=== PATIENT | female | born 1990 | race Caucasian/White ===

== ENCOUNTER 2018-08-11 10:06 | Emergency (ER) | payer OTHER ==
--- NOTE | 2018-08-11 10:52 | ER Document Report ---
ED Medical Screen (RME) - General Chief Complaint: Abdominal Pain Stated Complaint: ABDOMINAL CRAMPING Time Seen by Provider: 08/11/18 10:46 Mode of Arrival: Ambulatory Information source: Patient Notes: 27-year-old female presented to ED for pelvic cramping vaginal slight spotting and patient states she woke up saturated with some type of body fluid but does not smell like urine. She said her medical history is bronchitis 1 live and eye surgery. She is alert oriented respirations regular and unlabored speaking in full sentences walks with a even steady gait. States her last men strual period was a couple months ago. I have greeted and performed a rapid initial assessment of this patient. A comprehensive ED assessment and evaluation of the patient, analysis of test results and completion of medical decision making process will be conducted by an additional ED providers. Dictation of this chart was performed using voice recognition software; therefore, there may be some unintended grammatical errors. TRAVEL OUTSIDE OF THE [place] IN LAST 30 DAYS: No - Related Data Allergies/Adverse Reactions: Penicillins Allergy (Verified 08/11/18 10:09) Physical Exam - Vital signs Vitals: Temp Pulse Resp BP Pulse Ox 97.2 F 70 16 117/60 99 08/11/18 10:12 08/11/18 10:12 08/11/18 10:12 08/11/18 10:12 08/11/18 10:12 Course - Vital Signs Vital signs: Temp Pulse Resp BP Pulse Ox 97.2 F 70 16 117/60 99 08/11/18 10:12 08/11/18 10:12 08/11/18 10:12 08/11/18 10:12 08/11/18 10:12
[2018-08-11 11:32] LABS: ABSOLUTE EOSINOPHILS # (AUTO) 0.1 10^3/uL (0.0-0.6); ABSOLUTE LYMPHOCYTES (AUTO) 1.5 10^3/uL (0.5-4.7); ABSOLUTE MONOCYTES (AUTO) 0.5 10^3/uL (0.1-1.4); BASOPHILS % (AUTO) 0.6 % (0-2); EOSINOPHILS % (AUTO) 1.7 % (0-6); HEMATOCRIT 37.6 % (36.0-47.0); HEMOGLOBIN 12.5 g/dL (12.0-15.5); LYMPHOCYTES % (AUTO) 29.3 % (13-45); MEAN CORPUSCULAR HGB CONC 33.4 g/dL (32.0-36.0); MEAN CORPUSCULAR VOLUME 87 fl (80-97); MONOCYTES % (AUTO) 9.5 % (3-13); PLATELET COUNT 253 10^3/uL (150-450); RED BLOOD COUNT 4.32 10^6/uL (3.72-5.28); RED CELL DISTRIBUTION WIDTH 14.2 % (11.5-14.0); SEGMENTED NEUTROPHILS % (AUTO) 58.9 % (42-78); TOTAL CELLS COUNTED % (AUTO) 100 %; WHITE BLOOD COUNT 5.1 10^3/uL (4.0-10.5)
[2018-08-11 11:37] LABS: AMORPHOUS SEDIMENT,URINE TRACE /HPF; APPEARANCE,URINE CLOUDY; BILIRUBIN,URINE NEGATIVE (NEGATIVE); COLOR,URINE YELLOW; GLUCOSE, URINE NEGATIVE (NEGATIVE); KETONES,URINE NEGATIVE (NEGATIVE); LEUKOCYTE ESTERASE,URINE NEGATIVE (NEGATIVE); NITRITE,URINE NEGATIVE (NEGATIVE); PROTEIN,URINE NEGATIVE (NEGATIVE); URINE SPECIFIC GRAVITY 1.016; UROBILINOGEN,URINE NEGATIVE mg/dL (<2.0)
[2018-08-11 11:52] LABS: ALANINE AMINOTRANSFERASE 17 U/L (9-52); ALBUMIN 4.2 g/dL (3.5-5.0); ALKALINE PHOSPHATASE 56 U/L (38-126); ANION GAP 7 (5-19); ASPARTATE AMINO TRANSFERASE 15 U/L (14-36); BILIRUBIN,DIRECT 0.1 mg/dL (0.0-0.4); BILIRUBIN,TOTAL 0.5 mg/dL (0.2-1.3); BLOOD UREA NITROGEN 6 mg/dL (7-20); CALCIUM 9.6 mg/dL (8.4-10.2); CARBON DIOXIDE 24 mmol/L (22-30); CHLORIDE 104 mmol/L (98-107); GLUCOSE 79 mg/dL (75-110); POTASSIUM 4.2 mmol/L (3.6-5.0); SODIUM 134.9 mmol/L (137-145); TOTAL PROTEIN 7.1 g/dL (6.3-8.2)
--- NOTE | 2018-08-11 13:28 | RADIOLOGY REPORT (SQ) ---
EXAM DESCRIPTION: U/S OB TRANSVAG W/DOPPLER COMPLETED DATE/TIME: 08/11/2018 1:14 pm REASON FOR STUDY: vaginal bleeding COMPARISON: None. TECHNIQUE: Transvaginal static and realtime grayscale images acquired of the pelvis. Additional sarah cted spectral and color Doppler images recorded. All images stored on PACs. [id number],430 CLINICAL DATES: Unknown LIMITATIONS: None. FINDINGS: FETUS: Single Living intrauterine . ULTRASOUND EGA: 10 weeks 0 days ULTRASOUND MARQUISE: 03/07/2019 EFW: Not applicable less than 20 weeks. CRL: 3.36 cm FHR: 155 beats per minute. SURVEY: Too early to assess. AMNIOTIC FLUID: Adequate amount. PLACENTA: Not yet developed due to early gestation. SUBCHORIONIC BLEED: Yes SIZE OF BLEED: 7.1 x 3.7 x 1.7 cm. UTERUS: No masses. No anomalies. CERVICAL LENGTH: 2.6 cm. Closed. RIGHT ADNEXA: Normal ovary with normal vascular flow. 2.9 x 2.7 x 1.3 cm. Small complex cystic area measuring 16 mm. No adnexal free fluid. No adnexal masses. LEFT ADNEXA: Normal ovary with normal vascular flow. 2.2 x 2.6 x 2.3 cm. Small complex cystic area measuring 16 mm. No adnexal free fluid. No adnexal masses. FREE FLUID: None. OTHER: No other significant finding. IMPRESSION: LIVING INTRAUTERINE . EGA 10 weeks 0 days Trimester of : First - 0 to 13 weeks. TECHNICAL DOCUMENTATION: JOB ID: [id number] [employer]- All Rights Reserved Reading location - IP/workstation name: [email or web address]
[2018-08-11] MEDS ORDERED: ONDANSETRON 4 MG TAB.RAPDIS PO ONE (13:29)
--- NOTE | 2018-08-11 13:30 | ER Document Report ---
ED GI/ - General Chief Complaint: Abdominal Pain Stated Complaint: ABDOMINAL CRAMPING Time Seen by Provider: 08/11/18 10:46 Mode of Arrival: Ambulatory Notes: Healthy 27-year-old G2, P2 female presents to the emergency department with chief complaint of waking up in a "pool of fluid with some slight blood and spotting since this morning. She also complains of abdominal pain and cramping suprapubic area. She denies . She does complain of nausea with no vomiting. She denies fevers or chills, acute shortness of breath or chest pain, denies any upper abdominal pain, complains of urinary frequency, denies dysuria or urgency, denies constipation. No other complaints. Last menstrual period approximately 2 or 3 months ago. TRAVEL OUTSIDE OF THE [place] IN LAST 30 DAYS: No - Related Data Allergies/Adverse Reactions: Penicillins Allergy (Verified 08/11/18 10:09) Past Medical History - General Information source: Patient - Social History Smoking Status: Current Every Day Smoker Chew tobacco use (# tins/day): No Frequency of alcohol use: None Drug Abuse: Marijuana Family History: None Patient has suicidal ideation: No Patient has homicidal ideation: No Pulmonary Medical History: Reports: Hx Bronchitis Renal/ Medical History: Denies: Hx Peritoneal Dialysis Psychiatric Medical History: Reports: Hx Depression Review of Systems - Review of Systems Constitutional: See HPI EENT: No symptoms reported Cardiovascular: See HPI Respiratory: See HPI Gastrointestinal: See HPI Genitourinary: See HPI Female Genitourinary: See HPI Musculoskeletal: No symptoms reported Skin: No symptoms reported Hematologic/Lymphatic: No symptoms reported Neurological/Psychological: No symptoms reported Physical Exam - Vital signs Vitals: Temp Pulse Resp BP Pulse Ox 97.2 F 70 16 117/60 99 08/11/18 10:12 08/11/18 10:12 08/11/18 10:12 08/11/18 10:12 08/11/18 10:12 - Notes Notes: PHYSICAL EXAMINATION: Reviewed vital signs and charting by RN GENERAL: Alert, interacts well. No acute distress. HEAD: Normocephalic, atraumatic. EYES: Pupils equal and round. Extraocular movements intact. ENT: Oral mucosa moist, tongue midline. NECK: Full range of motion. Trachea midline. LUNGS: Clear to auscultation bilaterally, no wheezes, rales, or rhonchi. No respiratory distress. HEART: Regular rate and rhythm. No murmur ABDOMEN: soft, suprapubic tenderness. No distention. Bowel sounds present EXTREMITIES: Moves all 4 extremities spontaneously. No edema, No cyanosis. PSYCH: Normal affect, normal mood. SKIN: Warm, dry, normal turgor. No rashes or lesions noted. Course - Re-evaluation Re-evalutation: 08/11/18 13:28 Patient with a positive serum hCG of 124,430. Transvaginal ultrasound with Doppler completed and pending radiology read. Patient currently complaining of nausea. Will treat. 08/11/18 13:29 08/11/18 14:11 Transvaginal ultrasound did show a live intrauterine approximately 10 weeks. There is a subchorionic bleed present. I have explained this to the patient and explained the risks of having a subchorionic bleed. She understood everything and is stable for discharge. - Vital Signs Vital signs: Temp Pulse Resp BP Pulse Ox 97.2 F 70 16 117/60 99 08/11/18 10:12 08/11/18 10:12 08/11/18 10:12 08/11/18 10:12 08/11/18 10:12 - Laboratory Result Diagrams: 08/11/18 11:19 08/11/18 11:19 Laboratory results interpreted by me: 08/11/18 08/11/18 08/11/18 11:19 11:19 11:19 RDW 14.2 H Sodium 134.9 L BUN 6 L Creatinine 0.39 L Beta HCG, Quant 678562.00 H Urine Blood SMALL H Discharge - Discharge Clinical Impression: Vaginal bleeding affecting early Qualifiers: Weeks of gestation: 10 weeks Qualified Code(s): Z3A.10 - 10 weeks gestation of Condition: Good Disposition: HOME, SELF-CARE Additional Instructions: Your ultrasound today shows a living intrauterine . Please follow closely with your primary care PERSONAL [employer] AIDE. Please return if you develop severe abdominal pain, bleeding that goes through more than 2 pads for more than 2 hours, pass out, or have any other symptoms that are concerning to you. Please follow-up closely with your OBGYN regarding today's visit.
[2018-08-11 14:40] VITALS: BP 106/54
== END 2018-08-11 14:40 | disposition home or self-care (01) ==
LOC: ER 10:06
DX: O20.9 Hemorrhage in early pregnancy, unspecified (principal); O99.331 Smoking (tobacco) complicating pregnancy, first trimester; Z3A.10 10 weeks gestation of pregnancy
CPT/HCPCS: 99284; 86900; 86901; 36415; 87086; 84702; 85025; 87088; 80053; 81001; 87186; 76817; 93976; S0119